=== PATIENT | female | born 1985 | race Caucasian/White ===

== ENCOUNTER 2018-07-17 17:38 | Inpatient (IN) | payer BC ==
[2018-07-17] MEDS ORDERED: Water For Irrigation,Sterile 1,000 ML Container IRR PRN (18:04)
[2018-07-17] MEDS ORDERED: Methylergonovine 0.2 MG/1 ML Amp IM PRN (18:04)
[2018-07-17] MEDS ORDERED: Misoprostol 200 MCG Tab PO PRN (18:04)
[2018-07-17] MEDS ORDERED: Carboprost Tromethamine 250 MCG/1 ML Amp IM PRN (18:04)
[2018-07-17] MEDS ORDERED: Nalbuphine 10 MG/1 ML Vial IVPUSH PRN (18:04)
[2018-07-17] MEDS ORDERED: Sodium Chloride 0.9% 2.5 ML Syringe FLUSH PRN (18:04)
[2018-07-17] MEDS ORDERED: Butorphanol 1 MG/ML SDV IVPUSH PRN (18:04)
[2018-07-17] MEDS ORDERED: Lidocaine 1% 50 ML MDV INJECT PRN (18:04)
[2018-07-17] MEDS ORDERED: Tranexamic Acid 1,000 MG in Sodium Chloride 0.9% 100 ML IV PRN (18:04)
[2018-07-17] MEDS ORDERED: Sodium Chloride 0.9% 10 ML Syringe FLUSH PRN (18:04)
[2018-07-17] MEDS ORDERED: Oxytocin/0.9 % Sodium Chloride 30 UNIT/500 ML BAG IV SCH ×2 (18:15→18:30)
[2018-07-17] MEDS ORDERED: Misoprostol 25 MCG (1/4 of 100 MCG) Tab VAG PRN (18:16)
[2018-07-17] MEDS ORDERED: Terbutaline 1 MG/ML SDV SUBCUT PRN (18:16)
[2018-07-17] MEDS ORDERED: Ondansetron 4 MG/2 ML SDV IVPUSH PRN (18:33)
[2018-07-17 19:01] LABS: CHLORIDE,CL 102 mmol/L (98-107); SODIUM,NA 135 mmol/L (136-145)
[2018-07-17] MEDS: Lactated Ringers 1,000 ML IV SCH (19:33)
[2018-07-18] MEDS: Lactated Ringers 1,000 ML IV SCH ×2 (01:36→02:18)
[2018-07-18] MEDS ORDERED: Lidocaine HCl/EPINEPHrine 5 ML IJ ONE (02:34)
[2018-07-18] MEDS ORDERED: fentaNYL 100 MCG/2 ML SDV ONE (02:34)
[2018-07-18] MEDS ORDERED: Ropivacaine HCl/PF 100 ML ONE (02:34)
--- NOTE | 2018-07-18 03:20 | PCM.PREANE ---
Preanesthetic Assessment - Anesthesia/Transfusion/Family Hx Anesthesia History: Prior Anesthesia Without Reaction Family History of Anesthesia Reaction: No Transfusion History: No Prior Transfusion(s) - Review of Systems General: No Symptoms Pulmonary: No Symptoms Cardiovascular: No Symptoms Gastrointestinal: No Symptoms Neurological: No Symptoms Other: Reports: Anxiety (related to pain with contractions) - Physical Assessment NPO Status Date: 07/18/18 NPO Status Time: 02:33 Blood Pressure: 136/73 Height: 5 ft 2 in Weight: 166 lb ASA Class: 2 Mental Status: Alert & Oriented x3 Airway Class: Mallampati = 2 Dentition: Reports: Normal Dentition Thyro-Mental Finger Breadths: 3 Mouth Opening Finger Breadths: 3 ROM/Head Extension: Full Lungs: Clear to Auscultation, Normal Respiratory Effort Cardiovascular: Regular Rate, Regular Rhythm - Lab Values: Laboratory Last Values WBC 13.13 K/uL (4.0-11.0) H 07/17/18 18:30 RBC 4.18 M/uL (4.30-5.90) L 07/17/18 18:30 Hgb 12.1 g/dL (12.0-16.0) 07/17/18 18:30 Hct 35.8 % (36.0-46.0) L 07/17/18 18:30 MCV 85.6 fL (80.0-98.0) 07/17/18 18:30 MCH 28.9 pg (27.0-32.0) 07/17/18 18:30 MCHC 33.8 g/dL (31.0-37.0) 07/17/18 18:30 RDW Std Deviation 44.1 fl (28.0-62.0) 07/17/18 18:30 RDW Coeff of Yamileth 14 % (11.0-15.0) 07/17/18 18:30 Plt Count 202 K/uL (150-400) 07/17/18 18:30 MPV 10.80 fL (7.40-12.00) 07/17/18 18:30 Nucleated RBC % 0.0 /100WBC 07/17/18 18:30 Nucleated RBCs # 0 K/uL 07/17/18 18:30 Sodium 135 mmol/L (136-145) L 07/17/18 18:30 Potassium 3.6 mmol/L (3.5-5.1) 07/17/18 18:30 Chloride 102 mmol/L (98-107) 07/17/18 18:30 Carbon Dioxide 22.6 mmol/L (21.0-32.0) 07/17/18 18:30 BUN 10 mg/dL (7.0-18.0) 07/17/18 18:30 Creatinine 0.5 mg/dL (0.6-1.0) L 07/17/18 18:30 Est Cr Clr Drug Dosing 127.76 mL/min 07/17/18 18:30 Estimated GFR (MDRD) > 60.0 ml/min 07/17/18 18:30 Glucose 77 mg/dL (74-106) 07/17/18 18:30 Uric Acid 3.2 mg/dL (2.6-7.2) 07/17/18 18:30 Calcium 9.0 mg/dL (8.5-10.1) 07/17/18 18:30 Total Bilirubin 0.6 mg/dL (0.2-1.0) 07/17/18 18:30 AST 20 IU/L (15-37) 07/17/18 18:30 ALT 23 IU/L (14-63) 07/17/18 18:30 Alkaline Phosphatase 153 U/L (46-116) H 07/17/18 18:30 Total Protein 6.8 g/dL (6.4-8.2) 07/17/18 18:30 Albumin 2.7 g/dL (3.4-5.0) L 07/17/18 18:30 Globulin 4.1 g/dL (2.6-4.0) H 07/17/18 18:30 Albumin/Globulin Ratio 0.7 (0.9-1.6) L 07/17/18 18:30 Blood Type A NEGATIVE 07/17/18 18:30 Antibody Screen NEGATIVE 07/17/18 18:30 - Allergies Allergies/Adverse Reactions: Allergies Allergy/AdvReac Type Severity Reaction Status Date / Time cefaclor [From [facility]] Allergy Difficulty Verified 07/17/18 18:01 Breathing - Blood Blood Available: No Product(s) Available: None - Anesthesia Plan Free Text/Narrative:: Labor Epidural - Acknowledgements Anesthesia Type Planned: Epidural Pt an Appropriate Candidate for the Planned Anesthesia: Yes Alternatives and Risks of Anesthesia Discussed w Pt/Guardian: Yes Pt/Guardian Understands and Agrees with Anesthesia Plan: Yes PreAnesthesia Questionnaire HEENT History: Reports: None Cardiovascular History: Reports: Hypertension Respiratory History: Reports: Asthma Gastrointestinal History: Reports: None Genitourinary History: Reports: None ORTHOTIST PROSTHETIST History: Reports: Musculoskeletal History: Reports: None Neurological History: Reports: Migraines Psychiatric History: Reports: None Endocrine/Metabolic History: Reports: None - Infectious Disease History Infectious Disease History: Reports: Chicken Pox - Past Surgical History HEENT Surgical History: Reports: Oral Surgery, Other (See Below) Other HEENT Surgeries/Procedures: wisdom teeth extraction; left ear flap surgery Cardiovascular Surgical History: Reports: None Respiratory Surgical History: Reports: None - SUBSTANCE USE Smoking Status *Q: Never Smoker Recreational Drug Use History: No - HOME MEDS Home Medications: Home Meds Acetaminophen [Tylenol Extra Strength] 1 - 2 tab PO Q4H PRN 07/17/18 [History] PNV95/Ferrous Fumarate/FA [ Tablet] 1 tab PO DAILY 07/17/18 [History] - CURRENT (IN HOUSE) MEDS Current Meds: Current Medications Butorphanol Tartrate (Stadol) 1 mg IVPUSH Q1H PRN PRN Reason: Pain Last Admin: 07/18/18 00:00 Dose: 1 mg Carboprost Tromethamine (Hemabate Ds) 250 mcg IM ASDIRECTED PRN PRN Reason: Post Hemorrhage Lactated Ringer's (Ringers, Lactated) 1,000 mls @ 150 mls/hr IV ASDIRECTED PRANAY Last Admin: 07/18/18 02:18 Dose: 999 mls/hr Oxytocin/Sodium Chloride (Oxytocin 30 Unit/500 Ml-Ns) 30 unit in 500 mls @ 999 mls/hr IV TITRATE PRANAY Tranexamic Acid 1,000 mg/ (Sodium Chloride) 110 mls @ 660 mls/hr IV ONETIME PRN PRN Reason: Bleeding Oxytocin/Sodium Chloride (Oxytocin 30 Unit/500 Ml-Ns) 30 unit in 500 mls @ 2 mls/hr IV TITRATE PRANAY; Protocol Last Titration: 07/18/18 02:17 Dose: 0 munits/min, 0 mls/hr Vancomycin HCl 1 gm/ Sodium (Chloride) 250 mls @ 166 mls/hr IV Q12H PRANAY Last Admin: 07/17/18 19:36 Dose: 166 mls/hr Lidocaine HCl (Xylocaine 1%) 50 ml INJECT ONETIME PRN PRN Reason: Laceration repair Methylergonovine Maleate (Methergine) 0.2 mg IM ASDIRECTED PRN PRN Reason: Post Hemorrhage Misoprostol (Cytotec) 200 mcg PO ONETIME PRN PRN Reason: Post Hemorrhage Misoprostol (Cytotec) 25 mcg VAG Q4H PRN PRN Reason: Cervical Ripening Last Admin: 07/17/18 19:09 Dose: 25 mcg Nalbuphine HCl (Nubain) 10 mg IVPUSH Q1H PRN PRN Reason: Pain (severe 7-10) Ondansetron HCl (Zofran) 4 mg IVPUSH Q6H PRN PRN Reason: Nausea/Vomiting Sodium Chloride (Saline Flush) 10 ml FLUSH ASDIRECTED PRN PRN Reason: Keep Vein Open Sodium Chloride (Saline Flush) 2.5 ml FLUSH ASDIRECTED PRN PRN Reason: Keep Vein Open Sterile Water (Sterile Water For Irrigation) 1,000 ml IRR ASDIRECTED PRN PRN Reason: delivery Terbutaline Sulfate (Brethine) 0.25 mg SUBCUT ASDIRECTED PRN PRN Reason: Tacysystole Discontinued Medications Fentanyl (Sublimaze) Confirm Administered Dose 100 mcg .ROUTE .STK-MED ONE Stop: 07/18/18 02:35 Ropivacaine (Naropin 0.2%) Confirm Administered Dose 100 mls @ as directed .ROUTE .STK-MED ONE Stop: 07/18/18 02:35 Lidocaine/Epinephrine (Lidocaine 1.5%-Epi 1:200,000) Confirm Administered Dose 5 ml IJ .STK-MED ONE Stop: 07/18/18 02:35
[2018-07-18] MEDS ORDERED: Bisacodyl 10 MG Supp RECTAL PRN (06:12)
[2018-07-18] MEDS ORDERED: Witch Hazel Medicated Pads 40/Jar TOP PRN (06:12)
[2018-07-18] MEDS ORDERED: Ibuprofen 400 MG Tab PO PRN (06:12)
[2018-07-18] MEDS ORDERED: oxyCODONE 5 MG Tab PO PRN (06:12)
[2018-07-18] MEDS ORDERED: Acetaminophen 500 MG Tab PO PRN ×2 (06:12)
[2018-07-18] MEDS ORDERED: Benzocaine/Menthol 20%-0.5% Spray 78 GM Cannister TOP PRN (06:12)
[2018-07-18] MEDS ORDERED: Lanolin 100% Cream 7 GM Tube TOP PRN (06:12)
--- NOTE | 2018-07-18 06:26 | PCM.DEL ---
L & D Note - General Info Date of Service: 07/18/18 - Delivery Note Labor: Induced by Oxytocin Cervical Ripening Method: Misoprostil Delivery Outcome: Livebirth Delivery Method: Spontaneous Vaginal Delivery-Single Delivery Mode: Spontaneous Presentation: Left Occiput Anterior (TERESA) Nuchal Cord: None Prep: Other Anesthesia Type: Epidural Amniotic Fluid Description: Clear Episiotomy Type: None Laceration: 1st Degree Suture type: Vicryl Suture size: 2-0 Placenta: Intact, Spontaneous Cord: 3 Vessels Estimated Blood Loss: 100 Score 1 min: 8 Score 5 min: 8 Induction Criteria - Neumann Score Neumann Score Dilation: 1-2 cm Neumann Score Effacement: 40-50% Neumann Score 's Station: -3 Neumann Score Consistency: Medium Neumann Score Cervix Position: Posterior Neumann Score Total: 3 Neumann Score Presenting Part: Reports: Cephalic - Induction Gestational Age >/= 39 wks: Yes Estimated Pelvis: Reports: Adequate Reassuring Monitoring Strip: Yes Absence of Tachy Systole: Yes - General Info Date of Service: 07/18/18 - Patient Data Vitals - Most Recent: Last Vital Signs Temp Pulse Resp BP 136/73 07/18/18 03:21 Pulse Ox Weight - Most Recent: 166 lb Lab Results Last 24 Hours: Laboratory Results - last 24 hr 07/17/18 07/17/18 07/17/18 Range/Units 18:30 18:30 18:30 WBC 13.13 H (4.0-11.0) K/uL RBC 4.18 L (4.30-5.90) M/uL Hgb 12.1 (12.0-16.0) g/dL Hct 35.8 L (36.0-46.0) % MCV 85.6 (80.0-98.0) fL MCH 28.9 (27.0-32.0) pg MCHC 33.8 (31.0-37.0) g/dL RDW Std Deviation 44.1 (28.0-62.0) fl RDW Coeff of Yamileth 14 (11.0-15.0) % Plt Count 202 (150-400) K/uL MPV 10.80 (7.40-12.00) fL Nucleated RBC % 0.0 /100WBC Nucleated RBCs # 0 K/uL Cord ABG pH (7.18-7.38) Cord ABG Base Excess (-10--2) Cord VBG pH (7.25-7.45) Cord VBG Base Excess (-10--2) Sodium 135 L (136-145) mmol/L Potassium 3.6 (3.5-5.1) mmol/L Chloride 102 (98-107) mmol/L Carbon Dioxide 22.6 (21.0-32.0) mmol/L BUN 10 (7.0-18.0) mg/dL Creatinine 0.5 L (0.6-1.0) mg/dL Est Cr Clr Drug Dosing 127.76 mL/min Estimated GFR (MDRD) > 60.0 ml/min Glucose 77 (74-106) mg/dL Uric Acid 3.2 (2.6-7.2) mg/dL Calcium 9.0 (8.5-10.1) mg/dL Total Bilirubin 0.6 (0.2-1.0) mg/dL AST 20 (15-37) IU/L ALT 23 (14-63) IU/L Alkaline Phosphatase 153 H (46-116) U/L Total Protein 6.8 (6.4-8.2) g/dL Albumin 2.7 L (3.4-5.0) g/dL Globulin 4.1 H (2.6-4.0) g/dL Albumin/Globulin Ratio 0.7 L (0.9-1.6) Blood Type A NEGATIVE Antibody Screen NEGATIVE 07/18/18 Range/Units 05:23 WBC (4.0-11.0) K/uL RBC (4.30-5.90) M/uL Hgb (12.0-16.0) g/dL Hct (36.0-46.0) % MCV (80.0-98.0) fL MCH (27.0-32.0) pg MCHC (31.0-37.0) g/dL RDW Std Deviation (28.0-62.0) fl RDW Coeff of Yamileth (11.0-15.0) % Plt Count (150-400) K/uL MPV (7.40-12.00) fL Nucleated RBC % /100WBC Nucleated RBCs # K/uL Cord ABG pH 7.232 (7.18-7.38) Cord ABG Base Excess -5 (-10--2) Cord VBG pH 7.348 (7.25-7.45) Cord VBG Base Excess -3 (-10--2) Sodium (136-145) mmol/L Potassium (3.5-5.1) mmol/L Chloride (98-107) mmol/L Carbon Dioxide (21.0-32.0) mmol/L BUN (7.0-18.0) mg/dL Creatinine (0.6-1.0) mg/dL Est Cr Clr Drug Dosing mL/min Estimated GFR (MDRD) ml/min Glucose (74-106) mg/dL Uric Acid (2.6-7.2) mg/dL Calcium (8.5-10.1) mg/dL Total Bilirubin (0.2-1.0) mg/dL AST (15-37) IU/L ALT (14-63) IU/L Alkaline Phosphatase (46-116) U/L Total Protein (6.4-8.2) g/dL Albumin (3.4-5.0) g/dL Globulin (2.6-4.0) g/dL Albumin/Globulin Ratio (0.9-1.6) Blood Type Antibody Screen Med Orders - Current: Current Medications Acetaminophen (Tylenol Extra Strength) 500 mg PO Q4H PRN PRN Reason: Pain Acetaminophen (Tylenol Extra Strength) 1,000 mg PO Q4H PRN PRN Reason: Pain Benzocaine/Menthol (Dermoplast Pain Relief 20%-0.5% Kensal) 78 gm TOP ASDIRECTED PRN PRN Reason: Perineal Comfort Measure Bisacodyl (Dulcolax) 10 mg RECTAL ONETIME PRN PRN Reason: Constipation Docusate Sodium (Colace) 100 mg PO BID PRN PRN Reason: Constipation Emollient Ointment (Lansinoh Hpa) 0 gm TOP ASDIRECTED PRN PRN Reason: Sore Nipples Ibuprofen (Motrin) 400 mg PO Q4H PRN PRN Reason: Pain Ibuprofen (Motrin) 800 mg PO Q6H PRN PRN Reason: Pain Oxycodone HCl (Oxycodone) 5 mg PO Q2H PRN PRN Reason: Pain Witch Jennie (Tucks) 1 pad TOP ASDIRECTED PRN PRN Reason: comfort care Discontinued Medications Butorphanol Tartrate (Stadol) 1 mg IVPUSH Q1H PRN PRN Reason: Pain Last Admin: 07/18/18 00:00 Dose: 1 mg Carboprost Tromethamine (Hemabate Ds) 250 mcg IM ASDIRECTED PRN PRN Reason: Post Hemorrhage Fentanyl (Sublimaze) Confirm Administered Dose 100 mcg .ROUTE .STK-MED ONE Stop: 07/18/18 02:35 Lactated Ringer's (Ringers, Lactated) 1,000 mls @ 150 mls/hr IV ASDIRECTED PRANAY Last Admin: 07/18/18 02:18 Dose: 999 mls/hr Oxytocin/Sodium Chloride (Oxytocin 30 Unit/500 Ml-Ns) 30 unit in 500 mls @ 999 mls/hr IV TITRATE PRANAY Tranexamic Acid 1,000 mg/ (Sodium Chloride) 110 mls @ 660 mls/hr IV ONETIME PRN PRN Reason: Bleeding Oxytocin/Sodium Chloride (Oxytocin 30 Unit/500 Ml-Ns) 30 unit in 500 mls @ 2 mls/hr IV TITRATE PRANAY; Protocol Last Titration: 07/18/18 02:17 Dose: 0 munits/min, 0 mls/hr Vancomycin HCl 1 gm/ Sodium (Chloride) 250 mls @ 166 mls/hr IV Q12H PRANAY Last Admin: 07/17/18 19:36 Dose: 166 mls/hr Ropivacaine (Naropin 0.2%) Confirm Administered Dose 100 mls @ as directed .ROUTE .STK-MED ONE Stop: 07/18/18 02:35 Lidocaine HCl (Xylocaine 1%) 50 ml INJECT ONETIME PRN PRN Reason: Laceration repair Lidocaine/Epinephrine (Lidocaine 1.5%-Epi 1:200,000) Confirm Administered Dose 5 ml IJ .STK-MED ONE Stop: 07/18/18 02:35 Methylergonovine Maleate (Methergine) 0.2 mg IM ASDIRECTED PRN PRN Reason: Post Hemorrhage Misoprostol (Cytotec) 200 mcg PO ONETIME PRN PRN Reason: Post Hemorrhage Misoprostol (Cytotec) 25 mcg VAG Q4H PRN PRN Reason: Cervical Ripening Last Admin: 07/17/18 19:09 Dose: 25 mcg Nalbuphine HCl (Nubain) 10 mg IVPUSH Q1H PRN PRN Reason: Pain (severe 7-10) Ondansetron HCl (Zofran) 4 mg IVPUSH Q6H PRN PRN Reason: Nausea/Vomiting Sodium Chloride (Saline Flush) 10 ml FLUSH ASDIRECTED PRN PRN Reason: Keep Vein Open Sodium Chloride (Saline Flush) 2.5 ml FLUSH ASDIRECTED PRN PRN Reason: Keep Vein Open Sterile Water (Sterile Water For Irrigation) 1,000 ml IRR ASDIRECTED PRN PRN Reason: delivery Terbutaline Sulfate (Brethine) 0.25 mg SUBCUT ASDIRECTED PRN PRN Reason: Tacysystole - Problem List & Annotations (1) Vaginal delivery SNOMED Code(s): 921903052 Code(s): O80 - ENCOUNTER FOR FULL-TERM UNCOMPLICATED DELIVERY Status: Acute Current Visit: No (2) Gestational hypertension SNOMED Code(s): 130258890, 648455549 Code(s): O13.9 - GESTATIONAL HTN W/O SIGNIFICANT PROTEINURIA, UNSP TRIMESTER Status: Acute Current Visit: No Qualifiers: Trimester: third trimester Qualified Code(s): O13.3 - Gestational [ -induced] hypertension without significant proteinuria, third trimester - Problem List Review Problem List Initiated/Reviewed/Updated: Yes - My Orders Last 24 Hours: My Active Orders 07/17/18 18:04 May Shower [RC] ASDIRECTED Notify Provider [RC] PRN Up ad Ranjana [RC] ASDIRECTED Vital Signs [RC] PER UNIT ROUTINE 07/17/18 18:16 Bedrest Bathroom Privileges [RC] ASDIRECTED Oxygen Therapy [RC] ASDIRECTED 07/18/18 06:12 Acetaminophen [Tylenol Extra Strength] 1,000 mg PO Q4H PRN Acetaminophen [Tylenol Extra Strength] 500 mg PO Q4H PRN Benzocaine/Menthol [Dermoplast Pain Relief 20%-0.5% Kensal] 78 gm TOP ASDIRECTED PRN Bisacodyl [Dulcolax] 10 mg RECTAL ONETIME PRN Docusate Sodium [Colace] 100 mg PO BID PRN Ibuprofen [Motrin] 400 mg PO Q4H PRN Ibuprofen [Motrin] 800 mg PO Q6H PRN Lanolin [Lansinoh HPA] See Dose Instructions TOP ASDIRECTED PRN Witch Jennie [Tucks] 1 pad TOP ASDIRECTED PRN oxyCODONE 5 mg PO Q2H PRN Breast Pump [WOMSER] Per Unit Routine Resuscitation Status Routine 07/18/18 06:13 Patient Status [ADT] Routine May Shower [RC] ASDIRECTED Up ad Ranjana [RC] ASDIRECTED Vital Signs [RC] PER UNIT ROUTINE Assess Lochia [WOMSER] Per Unit Routine Assess Uterine Involution [WOMSER] Per Unit Routine Perineal Care [OM.PC] Per Unit Routine Peripheral IV Discontinue [OM.PC] Routine 07/18/18 06:23 RHIG WORKUP, [BBK] Routine 07/18/18 Breakfast Regular Diet [DIET] 07/19/18 05:11 HEMOGLOBIN/HEMATOCRIT,HH [HEME] Timed
[2018-07-18] MEDS: Ibuprofen 800 MG Tab PO PRN ×3 (08:51→21:29)
--- NOTE | 2018-07-18 12:11 | OR ---
SURGEON: Barbara Cuenca MD DATE OF PROCEDURE: 07/18/2018 PREOPERATIVE DIAGNOSES: 1. Term at 39 weeks' gestation. 2. Gestational hypertension. POSTOPERATIVE DIAGNOSES: 1. Term at 39 weeks' gestation. 2. Gestational hypertension. 3. Delivered. PROCEDURES: 1. Induction of labor. 2. Spontaneous vaginal delivery. 3. Repair of perineal laceration. ANESTHESIA: Epidural. ESTIMATED BLOOD LOSS: 100 mL. COMPLICATIONS: None. DISPOSITION: Mother and baby are stable in Labor and Delivery room, bonding. FINDINGS: Female . Weight is pending. scores 8 and 9 at 1 and 5 minutes respectively. Clear amniotic fluid. Grossly normal placenta with 3-vessel cord. First-degree perineal laceration. INDICATIONS: The patient is a 33-year-old G2, P1, who was admitted overnight at 38 weeks and 6 days gestation for induction of labor secondary to gestational hypertension, which was diagnosed at her routine appointment earlier in the day. She had presented for her appointment and her blood pressure was 170/98, repeat was 150/90. She had no signs and symptoms of preeclampsia and no protein in her urine. On vaginal exam, she was 1 to 2 cm dilated, 40% effaced, -2 station. She was then sent over to Labor and Delivery for induction of labor secondary to gestational hypertension.On presentation to Labor and delivery, she received Cytotec for cervical ripening and proceeded to oxytocin infusion 4 hours later. Artificial rupture of membrane was performed at about 4:00 a.m. this morning. At that time, she was 7 cm dilated, 90% effaced, -1 station with clear amniotic fluid returned. She then progressed to full dilatation within an hour and commenced active pushing. Her blood pressure on Labor and Delivery ranged between 130s to 140s over 70s to 90s, and she remained symptomatic requiring no antihypertensives. Her HELLP labs were normal. With pushing, she did well, brought the head down to a +4 station and was set up for delivery in modified dorsal lithotomy position. She received Vancomycin for a positive GBS status due anaphylactic allergic reaction to penicillin DESCRIPTION OF PROCEDURE: She had a spontaneous vaginal delivery of a live female infant in left occipital anterior position, no nuchal cord, clear amniotic fluid at delivery. Anterior and posterior shoulders and the rest of the baby were delivered without difficulty. Baby was vigorous and cried spontaneously at and was delivered onto the maternal abdomen. Delayed cord clamping was observed and the cord was subsequently cut by the father of the baby. With the delivery of the infant, oxytocin infusion was converted to titration for active management of third stage of labor. Cord blood and gas samples were obtained, and the placenta was delivered spontaneously by controlled cord traction, appeared to be complete and intact. Examination of the perineum revealed a small vaginal laceration, which despite constant pressure was bleeding, so it was repaired with 3-0 Vicryl and the area was hemostatic thereafter. Uterine massage was performed. The uterus was found to be well contracted below the umbilicus. The patient tolerated the procedure well. Sponge, instrument, and needle counts were correct at the end of the delivery. ADUMVIV / MODL /[id number] MTDD
--- NOTE | 2018-07-18 18:29 | PCM48HPAN ---
Post Anesthesia Note - EVALUATION WITHIN 48HRS OF ANESTHETIC Vital Signs in Normal Range: Yes Patient Participated in Evaluation: Yes Respiratory Function Stable: Yes Airway Patent: Yes Cardiovascular Function Stable: Yes Hydration Status Stable: Yes Pain Control Satisfactory: Yes Nausea and Vomiting Control Satisfactory: Yes Mental Status Recovered: Yes Blood Pressure: 136/73
[2018-07-19] MEDS: Docusate Sodium 100 MG Cap PO PRN ×2 (09:25→21:23)
--- NOTE | 2018-07-19 10:13 | PCM.PNPP ---
- General Info Date of Service: 07/19/18 Functional Status: Reports: Pain Controlled, Tolerating Diet, Ambulating, Urinating - Review of Systems General: Reports: No Symptoms HEENT: Reports: No Symptoms Pulmonary: Reports: No Symptoms Cardiovascular: Reports: No Symptoms Gastrointestinal: Reports: No Symptoms Genitourinary: Reports: No Symptoms Musculoskeletal: Reports: No Symptoms Skin: Reports: No Symptoms Neurological: Reports: No Symptoms - General Info Date of Service: 07/19/18 - Patient Data Vital Signs - Most Recent: Last Vital Signs Temp 36.6 C 07/19/18 07:25 Pulse 97 07/19/18 07:25 Resp 16 07/19/18 07:25 BP 127/67 07/19/18 07:25 Pulse Ox 97 07/19/18 07:25 Weight - Most Recent: 75.296 kg I&O - Last 24 Hours: Intake & Output 07/18/18 07/19/18 07/19/18 22:59 06:59 14:59 Intake Total 2 Balance 2 Lab Results - Last 24 Hours: Laboratory Results - last 24 hr 07/18/18 07/19/18 Range/Units 06:30 05:12 Hgb 10.8 L (12.0-16.0) g/dL Hct 33.2 L (36.0-46.0) % Screen NEGATIVE (NEGATIVE) RhIG Candidate? YES Rhogam Indicated YES, BABY RH POS H Med Orders - Current: Current Medications Acetaminophen (Tylenol Extra Strength) 500 mg PO Q4H PRN PRN Reason: Pain Acetaminophen (Tylenol Extra Strength) 1,000 mg PO Q4H PRN PRN Reason: Pain Benzocaine/Menthol (Dermoplast Pain Relief 20%-0.5% Mikado) 78 gm TOP ASDIRECTED PRN PRN Reason: Perineal Comfort Measure Bisacodyl (Dulcolax) 10 mg RECTAL ONETIME PRN PRN Reason: Constipation Docusate Sodium (Colace) 100 mg PO BID PRN PRN Reason: Constipation Last Admin: 07/19/18 09:25 Dose: 100 mg Emollient Ointment (Lansinoh Hpa) 0 gm TOP ASDIRECTED PRN PRN Reason: Sore Nipples Ibuprofen (Motrin) 400 mg PO Q4H PRN PRN Reason: Pain Ibuprofen (Motrin) 800 mg PO Q6H PRN PRN Reason: Pain Last Admin: 07/18/18 21:29 Dose: 800 mg Oxycodone HCl (Oxycodone) 5 mg PO Q2H PRN PRN Reason: Pain Witch Jennie (Tucks) 1 pad TOP ASDIRECTED PRN PRN Reason: comfort care Discontinued Medications Butorphanol Tartrate (Stadol) 1 mg IVPUSH Q1H PRN PRN Reason: Pain Last Admin: 07/18/18 00:00 Dose: 1 mg Carboprost Tromethamine (Hemabate Ds) 250 mcg IM ASDIRECTED PRN PRN Reason: Post Hemorrhage Fentanyl (Sublimaze) Confirm Administered Dose 100 mcg .ROUTE .STK-MED ONE Stop: 07/18/18 02:35 Lactated Ringer's (Ringers, Lactated) 1,000 mls @ 150 mls/hr IV ASDIRECTED PRANAY Last Admin: 07/18/18 02:18 Dose: 999 mls/hr Oxytocin/Sodium Chloride (Oxytocin 30 Unit/500 Ml-Ns) 30 unit in 500 mls @ 999 mls/hr IV TITRATE PRANAY Tranexamic Acid 1,000 mg/ (Sodium Chloride) 110 mls @ 660 mls/hr IV ONETIME PRN PRN Reason: Bleeding Oxytocin/Sodium Chloride (Oxytocin 30 Unit/500 Ml-Ns) 30 unit in 500 mls @ 2 mls/hr IV TITRATE PRANAY; Protocol Last Titration: 07/18/18 02:17 Dose: 0 munits/min, 0 mls/hr Vancomycin HCl 1 gm/ Sodium (Chloride) 250 mls @ 166 mls/hr IV Q12H PRANAY Last Admin: 07/17/18 19:36 Dose: 166 mls/hr Ropivacaine (Naropin 0.2%) Confirm Administered Dose 100 mls @ as directed .ROUTE .STK-MED ONE Stop: 07/18/18 02:35 Lidocaine HCl (Xylocaine 1%) 50 ml INJECT ONETIME PRN PRN Reason: Laceration repair Lidocaine/Epinephrine (Lidocaine 1.5%-Epi 1:200,000) Confirm Administered Dose 5 ml IJ .STK-MED ONE Stop: 07/18/18 02:35 Methylergonovine Maleate (Methergine) 0.2 mg IM ASDIRECTED PRN PRN Reason: Post Hemorrhage Misoprostol (Cytotec) 200 mcg PO ONETIME PRN PRN Reason: Post Hemorrhage Misoprostol (Cytotec) 25 mcg VAG Q4H PRN PRN Reason: Cervical Ripening Last Admin: 07/17/18 19:09 Dose: 25 mcg Nalbuphine HCl (Nubain) 10 mg IVPUSH Q1H PRN PRN Reason: Pain (severe 7-10) Ondansetron HCl (Zofran) 4 mg IVPUSH Q6H PRN PRN Reason: Nausea/Vomiting Sodium Chloride (Saline Flush) 10 ml FLUSH ASDIRECTED PRN PRN Reason: Keep Vein Open Sodium Chloride (Saline Flush) 2.5 ml FLUSH ASDIRECTED PRN PRN Reason: Keep Vein Open Sterile Water (Sterile Water For Irrigation) 1,000 ml IRR ASDIRECTED PRN PRN Reason: delivery Terbutaline Sulfate (Brethine) 0.25 mg SUBCUT ASDIRECTED PRN PRN Reason: Tacysystole - Infant Interaction Support Person: - Recovery Exam Fundal Tone: Firm Fundal Level: 2 Fingerbreadths Below Umbilicus Fundal Placement: Midline Lochia Amount: Scant Lochia Color: Rubra/Red Perineum Description: Intact, Minimal Bruising/Swelling Episiotomy/Laceration: None Bladder Status: Voiding Urinary Elimination: Voided - Exam General: Alert HEENT: Pupils Equal Neck: Supple Lungs: Clear to Auscultation Cardiovascular: Regular Rate GI/Abdominal Exam: Normal Bowel Sounds Extremities: Normal Inspection - Problem List & Annotations (1) Vaginal delivery SNOMED Code(s): 598990973 Code(s): O80 - ENCOUNTER FOR FULL-TERM UNCOMPLICATED DELIVERY Status: Acute Current Visit: No - Problem List Review Problem List Initiated/Reviewed/Updated: No - Assessment Assessment:: 33 yo P2 s/p , PPD 2 , recieved rhogam , denies any complains wants to go home Ambulating , voiding and tolerating regular diet, normal lochia s/p Rhogam - Plan Plan:: Routine care, s/p rhogam Can go home today if she wants , however peds want to keep baby
[2018-07-20] MEDS: Ibuprofen 800 MG Tab PO PRN (04:41)
[2018-07-20 08:59] VITALS: BP 124/83
--- NOTE | 2018-07-20 10:59 | PCM.PNPP ---
- General Info Date of Service: 07/20/18 Functional Status: Reports: Pain Controlled, Tolerating Diet, Ambulating - Review of Systems General: Reports: No Symptoms HEENT: Reports: No Symptoms Pulmonary: Reports: No Symptoms Cardiovascular: Reports: No Symptoms Gastrointestinal: Reports: No Symptoms Genitourinary: Reports: No Symptoms Musculoskeletal: Reports: No Symptoms Skin: Reports: No Symptoms Neurological: Reports: No Symptoms Psychiatric: Reports: No Symptoms - Patient Data Vital Signs - Most Recent: Last Vital Signs Temp 36.6 C 07/20/18 05:47 Pulse 73 07/20/18 08:00 Resp 14 07/20/18 08:00 BP 124/83 07/20/18 08:00 Pulse Ox 97 07/20/18 08:00 Weight - Most Recent: 75.296 kg Med Orders - Current: Current Medications Acetaminophen (Tylenol Extra Strength) 500 mg PO Q4H PRN PRN Reason: Pain Acetaminophen (Tylenol Extra Strength) 1,000 mg PO Q4H PRN PRN Reason: Pain Benzocaine/Menthol (Dermoplast Pain Relief 20%-0.5% [place]) 78 gm TOP ASDIRECTED PRN PRN Reason: Perineal Comfort Measure Bisacodyl (Dulcolax) 10 mg RECTAL ONETIME PRN PRN Reason: Constipation Docusate Sodium (Colace) 100 mg PO BID PRN PRN Reason: Constipation Last Admin: 07/19/18 21:23 Dose: 100 mg Emollient Ointment (Lansinoh Hpa) 0 gm TOP ASDIRECTED PRN PRN Reason: Sore Nipples Last Admin: 07/19/18 11:11 Dose: 1 tube Ibuprofen (Motrin) 400 mg PO Q4H PRN PRN Reason: Pain Last Admin: 07/19/18 10:56 Dose: 400 mg Ibuprofen (Motrin) 800 mg PO Q6H PRN PRN Reason: Pain Last Admin: 07/20/18 04:41 Dose: 800 mg Oxycodone HCl (Oxycodone) 5 mg PO Q2H PRN PRN Reason: Pain Witch Jennie (Tucks) 1 pad TOP ASDIRECTED PRN PRN Reason: comfort care Discontinued Medications Butorphanol Tartrate (Stadol) 1 mg IVPUSH Q1H PRN PRN Reason: Pain Last Admin: 07/18/18 00:00 Dose: 1 mg Carboprost Tromethamine (Hemabate Ds) 250 mcg IM ASDIRECTED PRN PRN Reason: Post Hemorrhage Fentanyl (Sublimaze) Confirm Administered Dose 100 mcg .ROUTE .STK-MED ONE Stop: 07/18/18 02:35 Lactated Ringer's (Ringers, Lactated) 1,000 mls @ 150 mls/hr IV ASDIRECTED PRANAY Last Admin: 07/18/18 02:18 Dose: 999 mls/hr Oxytocin/Sodium Chloride (Oxytocin 30 Unit/500 Ml-Ns) 30 unit in 500 mls @ 999 mls/hr IV TITRATE PRANAY Tranexamic Acid 1,000 mg/ (Sodium Chloride) 110 mls @ 660 mls/hr IV ONETIME PRN PRN Reason: Bleeding Oxytocin/Sodium Chloride (Oxytocin 30 Unit/500 Ml-Ns) 30 unit in 500 mls @ 2 mls/hr IV TITRATE PRANAY; Protocol Last Titration: 07/18/18 02:17 Dose: 0 munits/min, 0 mls/hr Vancomycin HCl 1 gm/ Sodium (Chloride) 250 mls @ 166 mls/hr IV Q12H PRANAY Last Admin: 07/17/18 19:36 Dose: 166 mls/hr Ropivacaine (Naropin 0.2%) Confirm Administered Dose 100 mls @ as directed .ROUTE .[employer]-MED ONE Stop: 07/18/18 02:35 Lidocaine HCl (Xylocaine 1%) 50 ml INJECT ONETIME PRN PRN Reason: Laceration repair Lidocaine/Epinephrine (Lidocaine 1.5%-Epi 1:200,000) Confirm Administered Dose 5 ml IJ .[facility]-MED ONE Stop: 07/18/18 02:35 Methylergonovine Maleate (Methergine) 0.2 mg IM ASDIRECTED PRN PRN Reason: Post Hemorrhage Misoprostol (Cytotec) 200 mcg PO ONETIME PRN PRN Reason: Post Hemorrhage Misoprostol (Cytotec) 25 mcg VAG Q4H PRN PRN Reason: Cervical Ripening Last Admin: 07/17/18 19:09 Dose: 25 mcg Nalbuphine HCl (Nubain) 10 mg IVPUSH Q1H PRN PRN Reason: Pain (severe 7-10) Ondansetron HCl (Zofran) 4 mg IVPUSH Q6H PRN PRN Reason: Nausea/Vomiting Sodium Chloride (Saline Flush) 10 ml FLUSH ASDIRECTED PRN PRN Reason: Keep Vein Open Sodium Chloride (Saline Flush) 2.5 ml FLUSH ASDIRECTED PRN PRN Reason: Keep Vein Open Sterile Water (Sterile Water For Irrigation) 1,000 ml IRR ASDIRECTED PRN PRN Reason: delivery Terbutaline Sulfate (Brethine) 0.25 mg SUBCUT ASDIRECTED PRN PRN Reason: Tacysystole - Interaction Infant Disposition, : in Room with Family Infant Interaction: Holding Feeding: Breastfed ; Nursed Well Support Person: - Recovery Exam Fundal Tone: Firm Fundal Level: 2 Fingerbreadths Below Umbilicus Fundal Placement: Midline Lochia Amount: Small Lochia Color: Rubra/Red Perineum Description: Intact, Minimal Bruising/Swelling Episiotomy/Laceration: Not Approximated Bladder Status: Voiding Urinary Elimination: Voided - Exam General: Alert, Oriented HEENT: Pupils Equal Neck: Supple Lungs: Normal Respiratory Effort Extremities: Normal Inspection, Normal Range of Motion, Non-Tender, No Pedal Edema Skin: Warm, Dry, Intact Neurological: No New Focal Deficit Psy/Mental Status: Alert, Normal Affect, Normal Mood - Problem List Review Problem List Initiated/Reviewed/Updated: Yes - Assessment Assessment:: 33 yo P2 s/p , PPD 2 , stable minimal lochia. - Plan Plan:: Dismiss to home, discharge instructions reviewed.
== END 2018-07-20 11:25 | disposition home or self-care (01) | DRG 560 ==
LOC: MW.OBCHECK 17:38 → MW.OB 17:52 → MW.OBCHECK 18:04 → OBSVTOIN 07-18 05:23 → MW.OB 07-18 13:50
PROVIDERS: ADMIT Obstetrics & Gynecology; ATTEND Obstetrics & Gynecology
PROC: 10E0XZZ Delivery of Products of Conception, External Approach (ICD-10-PCS; principal; 2018-07-18)
PROC: 3E033VJ Introduction of Other Hormone into Peripheral Vein, Percutaneous Approach (ICD-10-PCS; principal; 2018-07-18)
PROC: 6A550ZT Pheresis of Cord Blood Stem Cells, Single (ICD-10-PCS; principal; 2018-07-18)
PROC: 10907ZC Drainage of Amniotic Fluid, Therapeutic from Products of Conception, Via Natural or Artificial Opening (ICD-10-PCS; principal; 2018-07-18)
PROC: 0UQGXZZ Repair Vagina, External Approach (ICD-10-PCS; principal; 2018-07-18)
PROC: 3E0P7VZ Introduction of Hormone into Female Reproductive, Via Natural or Artificial Opening (ICD-10-PCS; principal; 2018-07-18)
PROC: 3E0R3BZ Introduction of Anesthetic Agent into Spinal Canal, Percutaneous Approach (ICD-10-PCS; 2018-07-18)
PROC: 00HU33Z Insertion of Infusion Device into Spinal Canal, Percutaneous Approach (ICD-10-PCS; 2018-07-18)
PROC: 3E0234Z Introduction of Serum, Toxoid and Vaccine into Muscle, Percutaneous Approach (ICD-10-PCS; 2018-07-19)
DX: O13.4 Gestational [pregnancy-induced] hypertension without significant proteinuria, complicating childbirth (principal); O71.4 Obstetric high vaginal laceration alone; O99.824 Streptococcus B carrier state complicating childbirth; Z37.0 Single live birth; Z3A.39 39 weeks gestation of pregnancy; O26.893 Other specified pregnancy related conditions, third trimester; Z67.11 Type A blood, Rh negative; Z88.1 Allergy status to other antibiotic agents
CPT/HCPCS: 01967; 36415; 59025; 59409; 80053; 82803; 84550; 85014; 85018; 85027; 85460; 86850; 86900; 86901; A9270-GY; J0595; J2590; J2792; J2795; J3010; J3370; J7050; J7120

== ENCOUNTER 2021-09-12 14:28 | Emergency (ER) | payer BC ==
[2021-09-12] MEDS ORDERED: Sodium Chloride 0.9% 1,000 ML IV ONE ×2 (15:00→15:01)
[2021-09-12] MEDS ORDERED: Sodium Chloride 0.9% 2.5 ML Syringe FLUSH PRN (15:00)
[2021-09-12] MEDS ORDERED: Sodium Chloride 0.9% 10 ML Syringe FLUSH PRN (15:00)
[2021-09-12] MEDS ORDERED: Ondansetron 4 MG/2 ML SDV IVPUSH ONE (15:00)
[2021-09-12 15:58] LABS: BLOOD UREA NITROGEN,BUN 15 mg/dL (7.0-18.0); CARBON DIOXIDE,CO2 22.2 mmol/L (21.0-32.0); CHLORIDE,CL 100 mmol/L (98-107); GLUCOSE RANDOM 84 mg/dL (74-106); LIPASE 115 U/L (73-393); POTASSIUM,K 3.9 mmol/L (3.5-5.1); SODIUM,NA 136 mmol/L (136-145)
[2021-09-12 16:19] VITALS: BP 115/69; PULSE 92
== END 2021-09-12 16:40 | disposition home or self-care (01) ==
LOC: MW.ED 14:28
DX: O21.1 Hyperemesis gravidarum with metabolic disturbance (principal); I10 Essential (primary) hypertension; Z88.8 Allergy status to other drugs, medicaments and biological substances; Z3A.09 9 weeks gestation of pregnancy
CPT/HCPCS: 36415; 80053; 81003; 83690; 83735; 85025; 96374; 99284; J2405; J3490; J7030

== ENCOUNTER 2021-12-05 18:13 | Observation (INO) | payer BC ==
[2021-12-05] MEDS ORDERED: Acetaminophen 500 MG Tab ONE (19:59)
[2021-12-05] MEDS ORDERED: Acetaminophen 1,000 MG in Premix Bag 1 BAG IV PRN (20:00)
[2021-12-05 21:07] LABS: CARBON DIOXIDE,CO2 20.8 mmol/L (21.0-32.0); POTASSIUM,K 3.3 mmol/L (3.5-5.1)
[2021-12-05 21:15] LABS: CORONAVIRUS COVID-19 NAA NEGATIVE (NEGATIVE); INFLUENZA A NAA NEGATIVE (NEGATIVE); INFLUENZA B NAA NEGATIVE (NEGATIVE)
[2021-12-05] MEDS: Sulfamethoxazole/Trimethoprim 800-160 MG Tab PO SCH (23:40)
[2021-12-06 06:45] VITALS: BP 105/62; PULSE 103
[2021-12-06] MEDS: Sulfamethoxazole/Trimethoprim 800-160 MG Tab PO SCH (09:11)
[2021-12-06] MEDS ORDERED: Lactated Ringers 1,000 ML IV SCH (09:30)
[2021-12-06] MEDS: Acetaminophen 500 MG Tab PO PRN ×2 (09:59→16:55)
== END 2021-12-06 18:30 | disposition home or self-care (01) ==
LOC: MW.OB 18:13 → MW.OBCHECK 18:13 → MW.OB 23:15 → MW.OBCHECK 23:15
PROVIDERS: ADMIT Obstetrics & Gynecology; ATTEND Obstetrics & Gynecology
DX: O99.891 Other specified diseases and conditions complicating pregnancy (principal); R50.9 Fever, unspecified; O16.2 Unspecified maternal hypertension, second trimester; M79.18 Myalgia, other site; Z98.890 Other specified postprocedural states; Z88.8 Allergy status to other drugs, medicaments and biological substances; Z79.899 Other long term (current) drug therapy; Z20.822 Contact with and (suspected) exposure to COVID-19; Z3A.23 23 weeks gestation of pregnancy
CPT/HCPCS: 0240U; 36415; 51701; 80053; 80305; 81001; 85025; 87086; 96365; A9270; G0378; J0131; J7120

== ENCOUNTER 2022-03-28 14:02 | Inpatient (IN) | payer BC ==
[2022-03-28] MEDS ORDERED: Lidocaine 1% 50 ML MDV INJECT PRN (15:20)
[2022-03-28] MEDS ORDERED: Sodium Chloride 0.9% 20 ML SDV IV PRN (15:20)
[2022-03-28] MEDS ORDERED: Tranexamic Acid 1,000 MG in Sodium Chloride 0.9% 100 ML IV PRN ×2 (15:20→19:57)
[2022-03-28] MEDS ORDERED: Methylergonovine 0.2 MG/1 ML Amp IM PRN ×2 (15:20→19:57)
[2022-03-28] MEDS ORDERED: Sodium Chloride 0.9% 2.5 ML Syringe FLUSH PRN (15:20)
[2022-03-28] MEDS ORDERED: Butorphanol 1 MG/ML SDV IVPUSH PRN (15:20)
[2022-03-28] MEDS ORDERED: Sodium Chloride 0.9% 10 ML Syringe FLUSH PRN (15:20)
[2022-03-28] MEDS ORDERED: Carboprost Tromethamine 250 MCG/1 ML Amp IM PRN (15:20)
[2022-03-28] MEDS ORDERED: Water For Irrigation,Sterile 1,000 ML Container IRR PRN (15:20)
[2022-03-28] MEDS ORDERED: Misoprostol 200 MCG Tab PO PRN (15:20)
[2022-03-28] MEDS ORDERED: Ampicillin 2 GM in Sodium Chloride 0.9% 100 ML IV ONE (15:25)
[2022-03-28] MEDS ORDERED: Oxytocin/0.9 % Sodium Chloride 30 UNIT/500 ML BAG IV SCH (15:30)
[2022-03-28] MEDS ORDERED: Lactated Ringers 1,000 ML IV SCH (15:30)
[2022-03-28] MEDS ORDERED: Vancomycin 2 GM in Sodium Chloride 0.9% 500 ML IV ONE (16:15)
[2022-03-28] MEDS ORDERED: Ropivacaine/PF 400 MG/200 ML PCA ONE (17:44)
[2022-03-28 17:46] LABS: CORONAVIRUS COVID-19 NAA NEGATIVE (NEGATIVE); INFLUENZA A NAA NEGATIVE (NEGATIVE); INFLUENZA B NAA NEGATIVE (NEGATIVE)
[2022-03-28] MEDS ORDERED: ePHEDrine 50 MG/ML SDV IVPUSH PRN (17:58)
[2022-03-28] MEDS ORDERED: Phenylephrine HCl In 0.9% NaCl 1 MG/10 ML Vial IVPUSH SCH (18:00)
[2022-03-28] MEDS ORDERED: Ropivacaine HCl/PF 400 MG in Premix Bag 1 BAG EPIDUR SCH (18:00)
[2022-03-28] MEDS ORDERED: Ropivacaine 0.5% 5 MG/ML 30 ML SDV ONE (19:33)
[2022-03-28] MEDS ORDERED: Lidocaine 2% with EPINEPHrine 1:200,000 20 ML SDV ONE (19:33)
[2022-03-28] MEDS ORDERED: Dexmedetomidine 200 MCG/2 ML SDV ONE (19:33)
[2022-03-28] MEDS ORDERED: Acetaminophen 500 MG Tab PO PRN (19:57)
[2022-03-28] MEDS ORDERED: oxyCODONE 5 MG Tab PO PRN (19:57)
[2022-03-28] MEDS ORDERED: Lanolin 100% Cream 7 GM Tube TOP PRN (19:57)
[2022-03-28] MEDS ORDERED: Benzocaine/Menthol 20%-0.5% Spray 78 GM Cannister TOP PRN (19:57)
[2022-03-28] MEDS ORDERED: Bisacodyl 10 MG Supp RECTAL PRN (19:57)
[2022-03-28] MEDS ORDERED: Ibuprofen 400 MG Tab PO PRN (19:57)
[2022-03-28] MEDS ORDERED: Witch Hazel Medicated Pads 40/Jar TOP PRN (19:57)
[2022-03-29] MEDS: Ibuprofen 800 MG Tab PO PRN ×3 (00:33→20:05)
[2022-03-29] MEDS ORDERED: Prenatal Multivitamin with Calcium/Folic Acid/Iron Tab PO SCH (09:00)
[2022-03-29] MEDS: Acetaminophen 500 MG Tab PO PRN ×2 (12:49→20:06)
[2022-03-29] MEDS: Docusate Sodium 100 MG Cap PO PRN (20:05)
[2022-03-30 08:33] VITALS: BP 143/91; PULSE 77
[2022-03-30] MEDS: Docusate Sodium 100 MG Cap PO PRN (09:37)
== END 2022-03-30 12:45 | disposition home or self-care (01) | DRG 541 ==
LOC: MW.OBCHECK 14:02 → MW.OB 14:04 → MW.OBCHECK 15:10 → MW.OB 15:10 → OBSVTOIN 19:26 → MW.OB 23:30
PROVIDERS: ADMIT Obstetrics & Gynecology; ATTEND Obstetrics & Gynecology
PROC: 10E0XZZ Delivery of Products of Conception, External Approach (ICD-10-PCS; principal; 2022-03-28)
PROC: 10907ZC Drainage of Amniotic Fluid, Therapeutic from Products of Conception, Via Natural or Artificial Opening (ICD-10-PCS; 2022-03-28)
PROC: 10D17Z9 Manual Extraction of Products of Conception, Retained, Via Natural or Artificial Opening (ICD-10-PCS; 2022-03-28)
PROC: 3E0R3BZ Introduction of Anesthetic Agent into Spinal Canal, Percutaneous Approach (ICD-10-PCS; 2022-03-28)
PROC: 00HU33Z Insertion of Infusion Device into Spinal Canal, Percutaneous Approach (ICD-10-PCS; 2022-03-28)
PROC: 10D17ZZ Extraction of Products of Conception, Retained, Via Natural or Artificial Opening (ICD-10-PCS; 2022-03-28)
DX: O13.4 Gestational [pregnancy-induced] hypertension without significant proteinuria, complicating childbirth (principal); Z3A.39 39 weeks gestation of pregnancy; Z37.0 Single live birth; O99.824 Streptococcus B carrier state complicating childbirth; Z20.822 Contact with and (suspected) exposure to COVID-19; Z88.0 Allergy status to penicillin
CPT/HCPCS: 01967; 0240U; 36415; 59025; 59409; 82803; 85014; 85018; 85027; 85460; 86592; 86850; 86900; 86901; A9270-GY; J2590; J2795; J3370; J7040

== ENCOUNTER 2022-04-03 18:00 | Inpatient (IN) | payer BC ==
[2022-04-03] MEDS ORDERED: Calcium Gluconate 10% 1 GM/10 ML SDV IV PRN (18:38)
[2022-04-03] MEDS ORDERED: Sodium Chloride 0.9% 20 ML SDV IV PRN (18:38)
[2022-04-03] MEDS ORDERED: Sodium Chloride 0.9% 10 ML Syringe FLUSH PRN (18:38)
[2022-04-03] MEDS ORDERED: Sodium Chloride 0.9% 2.5 ML Syringe FLUSH PRN (18:38)
[2022-04-03] MEDS ORDERED: Magnesium Sulfate/Water 4 GM in Premix Bag 1 BAG IV ONE (18:38)
[2022-04-03] MEDS ORDERED: Labetalol 100 MG Tab PO PRN (18:53)
[2022-04-03] MEDS: Magnesium Sulfate/Water 20 GM/500 ML BAG IV SCH (20:19)
[2022-04-03] MEDS ORDERED: Sodium Chloride 0.9% 1,000 ML IV SCH (20:45)
[2022-04-03] MEDS ORDERED: Labetalol 100 MG/20 ML MDV IVPUSH PRN (22:29)
[2022-04-04] MEDS: Acetaminophen 500 MG Tab PO PRN ×2 (01:30→09:32)
[2022-04-04] MEDS: Magnesium Sulfate/Water 20 GM/500 ML BAG IV SCH (06:04)
[2022-04-04 07:41] LABS: CARBON DIOXIDE,CO2 23.7 mmol/L (21.0-32.0); POTASSIUM,K 3.6 mmol/L (3.5-5.1)
[2022-04-04] MEDS ORDERED: Labetalol 100 MG Tab PO SCH (09:00)
[2022-04-04 09:34] VITALS: BP 140/90; PULSE 83
== END 2022-04-04 17:20 | disposition home or self-care (01) | DRG 561 ==
LOC: MW.OB 18:00
PROVIDERS: ADMIT Obstetrics & Gynecology; ATTEND Obstetrics & Gynecology
PROC: 3E0334Z Introduction of Serum, Toxoid and Vaccine into Peripheral Vein, Percutaneous Approach (ICD-10-PCS; principal; 2022-04-04)
DX: O14.15 Severe pre-eclampsia, complicating the puerperium (principal); Z86.16 Personal history of COVID-19; Z79.899 Other long term (current) drug therapy; R94.5 Abnormal results of liver function studies; Z20.822 Contact with and (suspected) exposure to COVID-19
CPT/HCPCS: 36415; 36430; 80053; 81001; 82570; 83735; 84156; 85025; 86850; 86900; 86901; A9270-GY; J2790; J3475; J7030; U0002